=== PATIENT | female | born 1945 | race Caucasian/White ===

== ENCOUNTER 2025-02-28 21:18 | Emergency (ER) | payer MEDICARE, SELFPAY ==
[2025-02-28 21:28] VITALS: BP 140/59
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
[2025-02-28 23:18] VITALS: BP 162/72
== END 2025-03-01 04:30 ==
LOC: EMR 21:18
PROVIDERS: EMERGENCY PHYSICIAN Emergency Medicine; FAMILY PHYSICIAN Internal Medicine Geriatric Medicine
DX: S00.11XA Contusion of right eyelid and periocular area, initial encounter (principal); Y04.2XXA Assault by strike against or bumped into by another person, initial encounter; I10 Essential (primary) hypertension; E78.5 Hyperlipidemia, unspecified; E03.9 Hypothyroidism, unspecified; F03.90 Unspecified dementia, unspecified severity, without behavioral disturbance, psychotic disturbance, mood disturbance, and anxiety; I48.91 Unspecified atrial fibrillation
CPT/HCPCS: 99284; 70450